=== PATIENT | female | born 1965 | race Caucasian/White ===

== ENCOUNTER → 2019-09-03 | Outpatient (CLI) | payer OTHER, SELFPAY ==
[2019-09-03 09:22] VITALS: BMI 24.9
--- NOTE | 2019-09-03 09:45 | RAD_ITS ---
STUDY: X-RAY - RIGHT FOOT CLINICAL: Female, 53 years old. Little toe injury. Bruising. Pain. TECHNIQUE: 2 view(s) of the foot. COMPARISON: None. FINDINGS: No obvious acute displaced fracture. No dislocation. No bone destruction. Mild soft tissue swelling. RAD/Foot 2 Views IMPRESSION: No acute displaced fracture Mild soft tissue swelling Electronically Signed: Joel Groves DO at 10:10 EDT Tel , Service support ,
== END | disposition home or self-care (01) ==
LOC: HPRAD 09:44
PROVIDERS: Family Provider Family Medicine; PCP Family Medicine; Referring Provider Nurse Practitioner Family; Visit Provider Nurse Practitioner Family
DX: S90.121A Contusion of right lesser toe(s) without damage to nail, initial encounter (principal); S90.31XA Contusion of right foot, initial encounter
CPT/HCPCS: 73620

== ENCOUNTER 2020-07-12 11:25 | Observation (INO) | payer OTHER, SELFPAY ==
[2019-09-03 09:22] VITALS: BMI 24.9
[2020-07-12] VITALS (12 sets, daily range): BP systolic 139–203; BP diastolic 73–102; PULSE 55–76; RESP 12–20; TEMP 36.6–36.8; O2SAT 97–100; BMI 28.0; BMI 24.8; BMI 24.9
--- NOTE | 2020-07-12 11:47 | EKG12_ITS ---
Test Reason : EKG CHANGES Blood Pressure : / mmHG Vent. Rate : 057 BPM Atrial Rate : 057 BPM P-R Int : 186 ms QRS Dur : 090 ms QT Int : 420 ms P-R-T Axes : 072 008 032 degrees QTc Int : 408 ms Sinus bradycardia Otherwise normal ECG Confirmed by LAZARO MCCARTHY ([id number]), associate editor LINCOLN MARIE ([id number]) on 07/17/2020 9:36:55 AM Referred By: LISANDRA Confirmed By:LAZARO MCCARTHY
--- NOTE | 2020-07-12 11:47 | ED.VISSUMM ---
- ER Visit Summary Date of Service: 07/12/20 Chief Complaint: Chest pain and abnormal EKG History of Present Illness: The patient is a 54 F who presents with chest pain and an abnormal EKG. Patient states she has been having chest pain off and on for the past several months. Patient states she was initially scheduled to have an EKG done in November but when the COVID outbreak hit, she did not follow-up with this. Patient states she had an outpatient EKG done at her primary care physician's office today. Patient was then referred to the emergency department because there were some abnormalities on the EKG. Patient states she has some pressure in her upper chest. Patient also admits to some pain under her right scapula. Patient denies any nausea or vomiting. Patient does admit to some palpitations. Patient denies any fevers or chills. Patient denies any cough or shortness of breath. Physical Examination: Vital signs are stable. Patient is afebrile. Patient is in no acute distress. Oral mucosa is pink and moist. Neck is supple. Trachea is midline. There is no JVD noted. Heart was regular rate and rhythm. Lungs are clear and equal bilaterally. Abdomen is soft. Bowel sounds are normal. There is no tenderness. There is no rebound or guarding noted. Skin is warm dry. Cranial nerves II through XII are intact. There are no focal motor or sensory deficits noted. Extremities are intact. There is no calf tenderness or edema. Test Results: EKG showed a sinus bradycardia with a rate of 57. There is some T wave inversion noted in lead III only. There are no other acute ST or T wave changes. EKG from her primary care physician's office noted low voltage in leads II and aVF. There was flattened T waves in leads II and aVF and T wave inversion in lead III. There is left ventricular hypertrophy. Chest x-ray was obtained and this did not show any acute cardiopulmonary process. This was interpreted by the radiologist and reviewed by myself. CBC, basic metabolic profile, and troponin were obtained and were all within normal limits. Emergency Department Course and Treatment: Patient was given aspirin here. Patient stated her chest pain had resolved and was not given any nitroglycerin here. Patient has a HEART score of 4. I recommended admission for further evaluation. Patient understands and is agreeable with the plan. All questions were answered. Case was discussed with the hospitalist. He will admit the patient for observation to PCU. Disposition: Admit for observation Impression: 1. Chest pain This note was generated with [employer] dictation software. It may contain incorrect words, spelling, and punctuation that were not noted in review of the chart prior to signing ED Disposition - Plan for ED Patient: Disposition: Acute [facility] Diagnosis: Chest pain Referrals: Murali Tavares MD [Primary Care Provider] -
--- NOTE | 2020-07-12 11:50 | NURSING ---
NO OLD EKGS
[2020-07-12] MEDS: Aspirin 81 MG TAB.CHEW 324 MG PO (11:56)
--- NOTE | 2020-07-12 12:08 | RAD_ITS ---
STUDY: X-RAY CHEST REASON FOR EXAM: Female, 54 years old. sent from doctor''s for abnormal EKG, intermittent chest discomfort since November TECHNIQUE: Single AP portable view of the chest. COMPARISON: None. FINDINGS: The lungs are clear and expanded. There is no demonstrated pleural abnormality. Normal size heart. Normal mediastinum and johnathon. Normal visualized pulmonary arteries. Normal visualized aortic arch and descending thoracic aorta. Normal visualized thoracic spine. Normal visualized ribs, clavicles, and shoulders. There is no demonstrated abnormality of the visualized soft tissue structures of the upper abdomen. RAD/Chest 1 View (Portable) IMPRESSION: Normal x-ray examination of the chest. Electronically Signed: Yeimi Ndiaye, at 14:05 EDT Tel , Service support ,
[2020-07-12 12:12] LABS: Absolute Lymphocyte Count 1.45 X10^3/uL (0.83-4.51); Absolute Neutrophil Count 3.5 X10^3/uL (2.0-7.7); Basophil# 0.02 X10^3/uL; Basophil% 0.4 % (0-1); Eosinophil# 0.05 X10^3/uL; Eosinophils% 0.9 % (0-5); Hematocrit 42.1 % (37-47); Hemoglobin 13.7 g/dL (12.0-15.0); Lymphocyte # 1.45 X10^3/ul (4.0); Lymphocyte % 27.1 % (19-41); Mean Corp Hgb Conc 32.5 g/dL (32-36); Mean Corpuscular Hgb 30.1 pg (27.0-32.0); Mean Corpuscular Volume 92.5 fL (81-99); Mean Platelet Vol. 9.3 fl (6.2-12.0); Monocyte# 0.36 X10^3/uL; Monocyte% 6.7 % (0-10); NRBC Flagged by Analyzer 0 % (0-5); Neutrophil # 3.46 X10^3/uL (2.7-7.7); Neutrophil % 64.7 % (47-70); Platelet Count 267 K/mm3 (150-450); RBC Distribution Width CV 13.5 % (11.6-14.6); RBC Distribution Width SD 45.2 fl (35.1-43.9); Red Blood Count 4.55 M/mm3 (4.2-5.4); White Blood Count 5.4 K/mm3 (4.4-11.0)
[2020-07-12 12:35] LABS: Anion Gap 3 (5-15); BUN 12 mg/dL (7-18); BUN/Creat Ratio 14.9 RATIO (10-20); Calcium,Total 9.2 mg/dL (8.5-10.1); Chloride 107 mmol/L (98-107); Creatinine, Serum 0.81 mg/dL (0.55-1.02); EST Glomerular Filtration Rate 78 mL/min (>60); Est Glom Filt Rate - Afr Amer 95 mL/min (>60); Estimated Creatinine Clearance 67.77 ml/min; Glucose 104 mg/dL (74-106); Potassium 3.7 mmol/L (3.5-5.1); Sodium Level 142 mmol/L (136-145)
--- NOTE | 2020-07-12 14:34 | NURSING ---
119 OBS CP ASHELFAH
--- NOTE | 2020-07-12 14:45 | PCM.HP.STD ---
Problem List (1) Elevated blood pressure reading Status: Acute (2) Chest pain Status: Acute History of Present Illness Date of Admission: 07/12/20 Chief Complaint: Chest pain, referred from PCP office because of abnormal EKG. The patient is a 54 year old F with no significant past medical history was referred to the ED by her PCP today because of chest pain and abnormal EKG. Patient states that she has been having intermittent chest pain since December,, intermittent, described as chest heaviness, comes on almost every day, not related to activity or exertion, resolved spontaneously and without aggravating or relieving factors. She denied associated shortness of breath, dizziness, syncope or presyncope. When this pain started in December,, she is supposed to have an EKG done at her PCPs office but that was not done because of the pandemic. Today, she went to her PCPs office to have an EKG done which was done and was reported as abnormal and she was sent to the emergency room for evaluation. In the emergency department, her blood pressure was elevated, bradycardia, other vital signs were stable. Her routine blood work was unremarkable. Chest x-ray showed no acute findings. EKG that was done at the ED revealed bradycardia, heart rate has been in the high 50s, no acute segment changes. EKG that was done at the PCPs office revealed nonspecific T wave changes on leads V2 and V3, I doubt any significant acute segment changes. She is being admitted for chest pain for evaluation. 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 Denies: Edema, Heaviness, Palpitations, Syncope Respiratory: Denies: Cough, Hemoptysis, Pleuritic Pain, Shortness of Breath, Sputum production, Wheezing Gastrointestinal: Denies: Abdominal Pain, Constipation, Diarrhea, Nausea, Vomiting Genitourinary: Denies: Dysuria, Frequency, Hematuria Musculoskeletal: Denies: Arm Pain, Back Pain, Foot Pain Skin: Denies: Dryness, Rash Neurological: Reports: Headaches. Denies: Balance problems, Double vision, Change in Speech, Slurred speech, Confusion, Incoordination, Numbness Psychiatric: Denies: Anxiety, Depression Endocrine: Denies: Change in Body Habitus, Polydipsia, Polyuria VTE Information - Inpt Only VTE Present on Admission: No VTE Mechan Device Prophylaxis: None VTE Pharm Prophylaxis ordered?: No - Physical Exam Vitals/I&O's: Vital Signs Temp Pulse Resp BP Pulse Ox 97.9 F 65 15 154/79 H 99 07/12/20 14:21 07/12/20 14:21 07/12/20 14:21 07/12/20 14:21 07/12/20 14:21 Oxygen Delivery Method Room Air Weight: 163 lb 9.328 oz Body Mass Index (BMI) 28.0 General: Alert, Oriented x3, Cooperative, No apparent distress HEENT: Atraumatic, PERRLA, EOMI, Normocephalic Oral: Moist Mucosa, No Gingival or Mucosal Lesions/ Ulcerations Neck: Supple, No JVD, Negative Carotid Bruits, Trachea Midline, Thyroid Normal Size and Texture Lungs: Clear to auscultation, Normal air movement, No rhonchi, No wheeze, No rales Cardiovascular: Regular rate, Regular Rhythm, Normal S1, Normal S2, PMI Normal Abdomen: Bowel Sounds Present, Soft, Non Tender, Non-Distended, No Hepato-splenomegaly Extremities: No clubbing, No cyanosis, No edema Skin: No rashes, No breakdown Lymphatic: No Cervical, Supraclavicular, or Inguinal Adenopathy Neurological: Cranial nerves II-XII grossly intact, Motor Exam 5/5 strength throughout Psych/Mental Status: Normal Affect, Appropriate, Alert and oriented to time, place, person, mood and affect Laboratory Results 07/12/20 12:02: WBC 5.4, RBC 4.55, Hgb 13.7, Hct 42.1, MCV 92.5, MCH 30.1, MCHC 32.5, RDW Std Deviation 45.2 H, RDW Coeff of Arlene 13.5, Plt Count 267, MPV 9.3, Immature Gran % (Auto) 0.200, Neut % (Auto) 64.7, Lymph % (Auto) 27.1, Lawrence % (Auto) 6.7, Eos % (Auto) 0.9, Baso % (Auto) 0.4, Absolute Neuts (auto) 3.5, Absolute Lymphs (auto) 1.45, Nucleated RBC % 0 07/12/20 12:02: Sodium 142, Potassium 3.7, Chloride 107, Carbon Dioxide 32.0, Anion Gap 3 L, BUN 12, Creatinine 0.81, Estim Creat Clear Calc 67.77, Est GFR (MDRD) Af Amer 95, Est GFR (MDRD) Non-Af 78, BUN/Creatinine Ratio 14.9, Glucose 104, Calcium 9.2, Troponin I < 0.015 Clinical Impression(s) from Imaging Studies Chest X-Ray 07/12/20 12:08 IMPRESSION: Normal x-ray examination of the chest. Electronically Signed: Yeimi Ndiaye, at 14:05 EDT Tel , Service support , Assessment/Plan All Active Problems (Last Updated 09/03/19 @ 09:24 by Holly Teresa) Elevated blood pressure reading (Acute) Chest pain (Acute) This is a 54 years old female patient was referred to ED from her PCPs office for chest pain and abnormal EKG, found to have elevated blood pressure and she is being admitted for evaluation. #1 chest pain/reported abnormal EKG: Both EKG from the ED and PCPs office reviewed as above. Chest x-ray showed no acute findings. Patient denied family history of premature CAD. First troponin is negative. Blood pressure was elevated, improved without treatment. Plan: Admit to PCU for observation, cardiac monitoring, serial cardiac enzymes, repeat EKG tomorrow morning, start baby aspirin, fasting blood profile, nitroglycerin PRN, nuclear stress test tomorrow morning if cardiac enzymes are negative. #2 elevated blood pressure: Without history of hypertension. Patient mentioned that she has been having issues with elevated blood pressure lately. Patient has been mentioned that the family has been having lots of stress because their son have a cancer and he is going for surgery. Plan: Start lisinopril/HCTZ, IV urology PRN. #3 DVT prophylaxis: Low risk patient, no prophylaxis indicated, ambulate. This note was generated with [employer] dictation software. It may contain incorrect words, spelling, and punctuation that were not noted in checking the note before signing. OBSV E&M: 39132 Initial observation care L3
--- NOTE | 2020-07-12 15:24 | EKG12_ITS ---
Test Reason : CP REPEAT Blood Pressure : / mmHG Vent. Rate : 056 BPM Atrial Rate : 056 BPM P-R Int : 198 ms QRS Dur : 080 ms QT Int : 452 ms P-R-T Axes : 071 005 029 degrees QTc Int : 436 ms Sinus bradycardia Otherwise normal ECG Confirmed by SIL SANDERS, KRYSTIAN ([id number]), video tape editor SENAIT ANDERSON ([id number]) on 07/20/2020 11:29:17 AM Referred By: TIM Confirmed By:KRYSTIAN MUJICA MD
[2020-07-12] MEDS: hydrALAZINE 20 MG/ML Vial 10 MG IV (16:01)
[2020-07-12] MEDS: 0.9% Saline Lock 10 ML Syringe IV (16:01)
--- NOTE | 2020-07-12 16:30 | EKG12_ITS ---
Test Reason : AM Blood Pressure : / mmHG Vent. Rate : 055 BPM Atrial Rate : 055 BPM P-R Int : 198 ms QRS Dur : 076 ms QT Int : 464 ms P-R-T Axes : 075 018 047 degrees QTc Int : 443 ms Sinus bradycardia Otherwise normal ECG Confirmed by SIL SANDERS, KRYSTIAN ([id number]), medical transcription editor SHINE COLON ([id number]) on 07/19/2020 1:13:34 PM Referred By: TIM Confirmed By:KRYSTIAN MUJICA MD
[2020-07-12] MEDS: Acetaminophen 325 MG Tablet 650 MG PO (18:23)
[2020-07-13 03:10] VITALS: PULSE 57
[2020-07-13 04:15] VITALS: BP 136/83; PULSE 74; RESP 18; TEMP 36.8; O2SAT 96
[2020-07-13 05:51] LABS: Cholesterol 226 mg/dL (200); High Density Lipoprotein 54 mg/dL; Triglycerides 139 mg/dL; Very Low Density Lipoprotein 28 mg/dL (5-40)
--- NOTE | 2020-07-13 05:55 | EKG12_ITS ---
Test Reason : CP REPEAT Blood Pressure : / mmHG Vent. Rate : 074 BPM Atrial Rate : 074 BPM P-R Int : 188 ms QRS Dur : 086 ms QT Int : 410 ms P-R-T Axes : 072 008 027 degrees QTc Int : 455 ms Normal sinus rhythm Normal ECG Confirmed by SIL SANDERS, KRYSTIAN ([id number]), publications editor SHINE COLON ([id number]) on 07/19/2020 1:16:54 PM Referred By: TIM Confirmed By:KRYSTIAN MUJICA MD
[2020-07-13 06:52] VITALS: PULSE 66
[2020-07-13] MEDS: Lisinopril 20 MG Tablet PO (07:01)
[2020-07-13] MEDS: Aspirin E.C. 81 MG Tablet PO (07:01)
[2020-07-13 07:44] VITALS: O2SAT 96
--- NOTE | 2020-07-13 09:11 | PCA ---
pt off floor
[2020-07-13 10:26] VITALS: BP 111/68; PULSE 79; RESP 15; TEMP 36.6; O2SAT 100
[2020-07-13] MEDS: hydroCHLOROthiazide 12.5mg 12.5 MG PO (10:33)
[2020-07-13 11:07] VITALS: PULSE 59
--- NOTE | 2020-07-13 12:16 | STRESSREP_ITS ---
Stress Test Report Date: 07/13/2020 Procedure: Exercise tolerance test/imaging study Indications: Chest pain Consent: Per the patient Procedure: The patient exercised on a Leroy protocol for 12 minutes achieving a peak heart rate of bpm (91 % predicted maximal heart rate) with a peak blood pressure 168/72 mmHg and a peak MET capacity of 13.4 METs. The baseline ECG demonstrated normal sinus rhythm, early repolarization. The peak exercise ECG demonstrated sinus tachycardia with about [address] depressions in the inferior and lateral leads. There were no significant ischemic changes. EKG during recovery revealed eventual return of ST segments to baseline. Occasional PVCs. No significant ischemic changes [There were no significant cardiac dysrhythmias pretest, during exercise, or recovery]. The functional capacity was considered excellent for age. There was [no complaint of chest discomfort during exercise or recovery]. The examination was discontinued secondary to achieving target heart rate. Impression: 1. Technically adequate (percent predicted maximal heart rate greater than 85%) exercise tolerance test 2. Stress test is negative for exercise-induced EKG changes of ischemia 3. The test test is negative for exercise-induced chest pain 4. Functional capacity is excellent for age 5. Nuclear images pending Myocardial perfusion imaging study: Technique: The patient was injected with 11.8 mCi of technetium 99m Cardiolite and subsequently rest SPECT Cardiolite nuclear imaging was obtained in the horizontal long, vertical long, and short axis views. The patient exercised on a Leroy protocol. Please see above for details. The patient was injected with 33.5 mCi of technetium 99m Cardiolite and subsequently stress SPECT Cardiolite nuclear imaging was obtained in the horizontal long, vertical long, and short axis views. A gated Cardiolite study at peak stress was obtained. Interpretation: Rest and stress SPECT Cardiolite nuclear imaging status post realignment, normalization, and attenuation correction, demonstrates overall normal myocardial radioisotope uptake. The gated Cardiolite study demonstrates no significant regional wall motion abnormalities. The reported LVEF is greater than 70 %. Impression: 1. There is no evidence of significant ischemia or infarction. 2. The gated Cardiolite study reports an LVEF of greater than 70 %. This note was generated with [employer] software. It may contain incorrect words, spelling, and punctuation that were not noted in checking the note before signing.
--- NOTE | 2020-07-13 12:19 | PHA.DC.COU ---
Pharmacy Services has performed discharge medication counseling for this patient. The patient was counseled on the following discharge medications and changes in medications for homegoing review. 1. LIPITOR 2. LISINOPRIL 3. HCTZ The Reason for Use, instructions for use, and potential side effects were reviewed for all new medications. The patient's questions regarding all of their medications were answered. The patient was able to verbally demonstrate an understanding of their discharge medications.
--- NOTE | 2020-07-13 12:58 | DCINST_ITS ---
- Discharge Diagnoses Current Active Problems: Current Active and Chronic Problems (Last Updated 09/03/19 @ 09:24 by Holly Teresa) Chest pain (Acute) Reason(s) for Visit for Discharge Instructions: Chest pain You will use the following diet at home:: Cardiac Your food should be the consistency of: Regular Your liquids should be the consistency of: Regular/Thin Discharge Activity: Return to Normal Activity Additional Instructions: Take note of your new medications. Continue to follow a low salt, low-fat diet. Continue to remain active with moderate exercises 30 minutes a day. Measure your blood pressure daily. Follow up with your primary care doctor in 1 to 2 weeks with a log of your blood pressure readings. You will need repeat blood work to be done within a week with your primary care doctor. To check up on your kidney function. Allergies/Adverse Reactions: Allergies adhesive tape Allergy (Mild, Verified 07/12/20 14:49) Rash Medications to take at Discharge Atorvastatin Calcium [Lipitor] 40 mg PO QHS 30 Days #30 tab 07/13/20 Lisinopril [Zestril] 20 mg PO DAILY 30 Days #30 tab 07/13/20 hydroCHLOROthiazide [Hydrochlorothiazide] 12.5 mg PO DAILY 30 Days #30 cap 07/13/20 The following prescriptions were given: hydroCHLOROthiazide [Hydrochlorothiazide] 12.5 mg PO DAILY 30 Days #30 cap Transmission Status: Pending to [id number] Atorvastatin Calcium [Lipitor] 40 mg PO QHS 30 Days #30 tab Transmission Status: Pending to [id number] Lisinopril [Zestril] 20 mg PO DAILY 30 Days #30 tab Transmission Status: Pending to [facility]/pharmacy #[id number] Primary Care Physician: Murali Tavares MD [Primary Care Provider] - Please follow up with your Primary Care Physician in: within 1-2 weeks Test Results: Test results from this visit will be discussed in further detail at your follow- up appointment, if applicable. Proposed Discharge Date: 07/13/20
--- NOTE | 2020-07-13 13:01 | PCM.DC.SUM ---
Discharge Date and Diagnosis - Problem List Patient Problems: Active and Suspected Problems (Last Updated 09/03/19 @ 09:24 by Holly Teresa) Chest pain (Acute) Date of Admission: 07/12/20 Date of Discharge: 07/13/20 - Primary Discharge Diagnosis Acute Problems: Active Problems (Last Updated 09/03/19 @ 09:24 by Holly Teresa) Chest pain (Acute) Hypertensive urgency/uncontrolled hypertension Hyperlipidemia Hospital Course and Treatment Imaging Results: 07/13/20 05:55 Nuclear Stress Test - Treadmil [NM] Routine Clinical Impression(s) from Imaging Studies Chest X-Ray 07/12/20 12:08 IMPRESSION: Normal x-ray examination of the chest. Electronically Signed: Yeimi Ndiaye, at 14:05 EDT Tel , Service support , Operations: None Procedures: Nuclear stress test Summary of Care Provided: The patient is a 54 year old F with no significant past medical history who comes in from her PCPs office where an EKG was done and it was said to be abnormal. Patient complains of intermittent chest pain with heaviness. She denied any dizziness or syncope or palpitations. Vitals remained stable. His initial EKG with some T wave inversions in V1 and V2. Repeat EKG shows resolution of T waves in V2. She was admitted to telemetry floor. Cardiac enzymes were negative. She underwent stress test that was negative. Her blood pressure was uncontrolled, she was started on lisinopril hydrochlorothiazide. Patient also had lipid profile done that showed elevated total cholesterol LDL. She was started on atorvastatin 40 mg p.o. nightly. She will also take her blood pressure daily and keep a log of blood pressure readings with her to her primary care doctor. She will need repeat kidney function test within a week. Patient Problems: Active and Suspected Problems (Last Updated 09/03/19 @ 09:24 by Holly Teresa) Chest pain (Acute) Subjective: On the day of discharge, patient was seen and examined. Denied any new complaints. Stress test was negative. - Physical Exam Vitals/I&O's: Vital Signs Temp Pulse Resp BP Pulse Ox 97.8 F 59 L 15 111/68 100 07/13/20 10:26 07/13/20 11:07 07/13/20 10:26 07/13/20 10:26 07/13/20 10:26 Oxygen Delivery Method Room Air Weight: 65.68 kg Body Mass Index (BMI) 24.8 Intake and Output for Last 24 Hours 07/11/20 07/12/20 07/13/20 23:59 23:59 23:59 Intake Total 400 / 640 480 / 480 Balance 400 / 640 480 / 480 General: Alert, Oriented x3, Cooperative, No apparent distress HEENT: Atraumatic, PERRLA, EOMI, Normocephalic Oral: Moist Mucosa Neck: Supple Lungs: Clear to auscultation Cardiovascular: Regular rate, Regular Rhythm, Normal S1, Normal S2, No murmurs Abdomen: Bowel Sounds Present, Soft, Non Tender, Non-Distended, No Hepato-splenomegaly Extremities: No edema Skin: No rashes Musculoskeletal: No Tenderness to Palpation of Joints or Extremities Lymphatic: No Cervical, Supraclavicular, or Inguinal Adenopathy Neurological: Cranial nerves II-XII grossly intact, Neuro grossly intact Psych/Mental Status: Normal Affect, Appropriate Laboratory Results 07/12/20 15:42: Troponin I < 0.015 07/12/20 17:40: Troponin I < 0.015 07/13/20 05:16: Triglycerides 139, Cholesterol 226 H, LDL Cholesterol 144 H, VLDL Cholesterol 28, HDL Cholesterol 54 Current Medications Acetaminophen (Tylenol) 650 mg PO Q6H PRN PRN PRN Reason: Pain Score 1-10/Temp > 100.7 F Last Admin: 07/12/20 18:23 Dose: 650 mg Documented by: Aspirin (Ecotrin) 81 mg PO DAILY@0800 [facility] [place] Last Admin: 07/13/20 07:01 Dose: 81 mg Documented by: Atorvastatin Calcium (Lipitor) 40 mg PO QHS [facility] [place] Hydralazine HCl (Apresoline Iv) 10 mg IV Q6H PRN PRN PRN Reason: for SBP>160 Last Admin: 07/12/20 16:01 Dose: 10 mg Documented by: Hydrochlorothiazide () 12.5 mg PO DAILY [facility] [place] Last Admin: 07/13/20 10:33 Dose: 12.5 mg Documented by: Lisinopril (Zestril) 20 mg PO DAILY [facility] [place] Last Admin: 07/13/20 07:01 Dose: 20 mg Documented by: Nitroglycerin (Nitrostat) 0.4 mg SUBLINGUAL Q5M PRN PRN Reason: CARDIAC/CHEST PAIN Ondansetron HCl (Zofran) 4 mg IV Q8H PRN PRN PRN Reason: NAUSEA/VOMITING Sodium Chloride () 10 - 40 ml IV UD PRN PRN Reason: SALINE FLUSH Last Admin: 07/12/20 16:01 Dose: 10 ml Documented by: Zolpidem Tartrate (Ambien (Generic)) 5 mg PO QHS PRN PRN PRN Reason: INSOMNIA Discharge Diet: Low fat/ Low Cholesterol, 2000 mg Sodium Diet Discharge Activity: Return to Normal Activity Home Medications: Medications to take at Discharge Atorvastatin Calcium [Lipitor] 40 mg PO QHS 30 Days #30 tab 07/13/20 Lisinopril [Zestril] 20 mg PO DAILY 30 Days #30 tab 07/13/20 hydroCHLOROthiazide [Hydrochlorothiazide] 12.5 mg PO DAILY 30 Days #30 cap 07/13/20 Following Prescriptions Were Given to Patient: hydroCHLOROthiazide [Hydrochlorothiazide] 12.5 mg PO DAILY 30 Days #30 cap Transmission Status: Received by [facility]/pharmacy #[id number] Atorvastatin Calcium [Lipitor] 40 mg PO QHS 30 Days #30 tab Transmission Status: Received by [facility]/pharmacy #[id number] Lisinopril [Zestril] 20 mg PO DAILY 30 Days #30 tab Transmission Status: Received by [facility]/pharmacy #[id number] Primary Care Physician: Murali Tavares MD [Primary Care Provider] - Please follow up with your Primary Care Physician in: within 1-2 weeks Disposition: Home Minutes spent on discharge:: 40 Patient Condition:: Stable Medical Necessity - Tobacco Use Smoking Status: Never smoker Tobacco Use: Non-smoker Meaningful Use Info Meaningful Use Diagnoses (Choose all that apply): None applicable OBSV E&M: 57494 Observation care discharge
== END 2020-07-13 12:56 | disposition home or self-care (01) ==
LOC: ED 14:17 → PCU 14:48
PROVIDERS: Admitting Provider Hospitalist; Emergency Provider Emergency Medicine; PCP Family Medicine; Visit Provider Internal Medicine
DX: R07.89 Other chest pain (principal); I16.0 Hypertensive urgency; R94.31 Abnormal electrocardiogram [ECG] [EKG]; R00.2 Palpitations; R00.1 Bradycardia, unspecified; E78.5 Hyperlipidemia, unspecified; I10 Essential (primary) hypertension
CPT/HCPCS: 36415; 71045; 78452; 80048; 80061; 84484; 85025; 93005; 93017; 96374; 99218; 99285; A9500; J7030; A4216; G0378

== ENCOUNTER 2021-01-24 11:29 | Emergency (ER) | payer OTHER, SELFPAY ==
[2020-07-12 14:50] VITALS: BMI 24.8
[2021-01-24 11:30] VITALS: BP 199/92; PULSE 62; RESP 18; TEMP 36.7; O2SAT 96; BMI 25.2
[2021-01-24 12:00] VITALS: BP 203/96; PULSE 65; RESP 18; O2SAT 97
--- NOTE | 2021-01-24 12:29 | ED.VIS.GEN ---
History of Present Illness Chief Complaint: Hypertension Informant: Patient Narrative: Patient is a [id number] previously healthy female who presents to the emergency department after she had her coronavirus vaccination. She states she was feeling anxious prior to getting the vaccination. After she received it around 10:30 AM she started to feel very nauseous and clammy. She ate some goldfish but felt she is going to throw them up. When EMS arrived to check on her she had a elevated blood pressure in the 200s systolic. She states that she was previously treated for hypertension but the medication she was on ended up dropping her blood pressure so her PCP took her off of this. She currently is feeling much better at this time. She denies any chest pain, shortness of breath or heart palpitations. She never developed a rash. No swelling of her face, mouth. Past Medical History - Allergies and Home Meds Allergies/Adverse Reactions: Allergies adhesive tape Allergy (Mild, Verified 01/24/21 11:34) Rash Primary Care Physician: Murali Tavares MD [Primary Care Provider] - 3-5 Days Prior records reviewed: Yes Past Medical History: None Surgical History: hysterectomy Smoking Status: Never smoker - Family History Maternal Family History: Reports: No pertinent history Paternal Family History: Reports: Heart Disease Review of Systems All systems negative except as indicated General: Denies: Chills, Fever, Sweats Eyes: Denies: Visual changes - bilaterally, Diplopia ENT: Denies: Rhinorrhea, Sore throat Cardiovascular: Denies: Chest pain, Palpitations Respiratory: Denies: Dyspnea, Cough, Dyspnea on exertion Gastrointestinal: Reports: Nausea. Denies: Abdominal pain, Vomiting, Diarrhea Genitourinary: Denies: Dysuria, Hematuria, Frequency Musculoskeletal: Denies: Back pain, Extremity Pain Skin: Denies: Rash, Wounds Neurological: Denies: Headache, Weakness, Numbness Psych: Reports: Anxiety Physical Exam Vital Signs/Narrative: Vital Signs Temp Pulse Resp BP Pulse Ox 01/24/21 12:00 65 18 203/96 H 97 01/24/21 11:30 98.0 F 62 18 199/92 H 96 Inital Vital Signs reviewed: Yes General: Well nourished, Well developed, No Acute Distress Head: Normocephalic, Atraumatic Eyes: Perrl, EOMI ENT: Moist mucous membranes, No rhinorrhea Neck: Supple, Nontender Cardiovascular: Regular rate, Regular rhythm, No murmurs Respiratory: No distress, CTA bilaterally, Chest nontender Abdomen: Soft, Nontender, Nondistended, Normal bowel sounds Back: Nontender, Normal Inspection Extremities: Nontender, No edema Skin: Normal color, No rash, - - No localized reaction to left shoulder injection site. Neurological: Alert, Oriented x3, Cranial nerves II-XII grossly intact, Normal Strength, Normal Sensation Psychological: Normal affect, Normal Mood Diagnostic/Tx/Re-eval - Medical Decision Making Patient presents to the ED for elevated blood pressure and reaction after her vaccination. She is feeling much better. Still having high blood pressure readings although she has been checking this at home and they have been normal or mildly high. Since she is completely asymptomatic now I do not feel any lab work-up is necessary. She denies any chest pain or shortness of breath. Do not feel this was an allergic reaction more of a vasovagal/anxiety reaction to getting the vaccine. She will have to discuss getting the second dose with her PCP. I do not feel starting any antihypertensive medication is necessary at this time as she previously was on medications at this drop of blood pressure. She will follow up with her PCP for this as well. I did advise her to monitor her blood pressure at home. Return precautions are reviewed with her. She understands and is agreeable this plan. Discharged home in stable condition. All questions were answered. ED Disposition - Plan for ED Patient: Disposition: Home or Assisted Living Diagnosis: Episode of hypertension Instructions: ED Hypertension, To Be Confirmed Referrals: Murali Tavares MD [Primary Care Provider] - 3-5 Days
[2021-01-24 12:45] VITALS: BP 158/87; PULSE 62; RESP 18; O2SAT 99
== END 2021-01-24 13:01 | disposition home or self-care (01) ==
PROVIDERS: Emergency Provider Emergency Medicine; PCP Family Medicine
DX: I10 Essential (primary) hypertension (principal); Z90.710 Acquired absence of both cervix and uterus
CPT/HCPCS: 99284

== ENCOUNTER → 2022-07-01 | Outpatient (CLI) | payer OTHER, SELFPAY ==
--- NOTE | 2022-07-01 10:06 | US_ITS ---
STUDY: SUPERFICIAL ULTRASOUND - NECK REASON FOR EXAM: Female, 56 years old. Cervical lymphadenopathy. TECHNIQUE: A superficial ultrasound was performed with real-time and static barksdale-scale imaging. COMPARISON: None. FINDINGS: Real-time and color duplex imaging was performed over the neck. In the left lateral neck at the level of the jaw there is a 0.8 x 0.6 x 0.4 cm hypoechoic focus with central vascularity. In the right lateral neck just below the ear there are 3 lymph nodes measuring 0.6 x 0.8 x 0.6 cm, 0.6 x 0.6 x 0.5 cm and 1.2 x 0.6 x 0.4 cm all demonstrate central vascularity. US/Head/Neck Soft Tissue IMPRESSION: Bilateral cervical lymphadenopathy.. Electronically Signed: Tim Kerns DO at 20:47 EDT ,
== END | disposition home or self-care (01) ==
PROVIDERS: PCP Family Medicine
DX: R59.0 Localized enlarged lymph nodes (principal)
CPT/HCPCS: 76536

== ENCOUNTER → 2025-07-27 | Outpatient (CLI) | payer OTHER, SELFPAY ==
--- NOTE | 2025-07-27 10:52 | BD_ITS ---
PROCEDURE: DEXA BONE DENSITY STUDY 07/27/2025 REASON FOR EXAM: F, age 59 y/o . Postmenopausal. TECHNIQUE: Procedure Code: BDDBD Modality: DX Procedure: DEXA BONE DENSITY STUDY COMPARISON: None FINDINGS: BMD and T-SCORES Lumbar spine: 0.727 g/cm2, T-score -2.9 Levels: L1 through L4 Left femoral neck: 0.663 g/cm2, T-score -1.7 Femoral neck comparison data not recommended for monitoring change. Left total hip: 0.781 g/cm2, T-score -1.3 Right femoral neck: 0.682 g/cm2, T-score -1.5 Femoral neck comparison data not recommended for monitoring change. Right total hip: 0.796 g/cm2, T-score -1.2 The World Health Organization has defined the following categories based on bone density: Normal bone density: T-score equal to or greater than -1.0 Osteopenia: T-score between -1.0 and -2.5 Osteoporosis: T-score equal to or less than -2.5 FRAX (or Comparable) Fracture Risk Assessment: 10 Year Probability of Fracture: Major Osteoporotic Fracture: 8.6% Hip Fracture: 0.8% (Note: FRAX is not to be reported in setting of normal range bone density, osteoporosis on DEXA, known history of osteoporosis, prior osteoporotic hip or vertebral fracture, or for any patient undergoing pharmacological treatment for bone loss.) The National Osteoporosis Foundation (NOF) recommends pharmacological treatment for patients with a FRAX 10-year risk of 3% or higher for a hip fracture, or 20% or higher for a major osteoporotic fracture, to prevent osteoporosis and reduce fracture risk. The patient does meet the pharmacological treatment recommendations for prevention of osteoporosis. BD/Dexa Bone Density Study IMPRESSION: OSTEOPOROSIS. Recommend follow-up as clinically warranted. Reading Location: [place] [id number]
== END | disposition home or self-care (01) ==
LOC: OPBD 10:46
PROVIDERS: PCP Family Medicine; Referring Provider Family Medicine; Visit Provider Family Medicine
DX: Z78.0 Asymptomatic menopausal state (principal)
CPT/HCPCS: 77080